=== PATIENT | male | born 1935 | race Caucasian/White ===

== ENCOUNTER → 2017-04-22 | Outpatient (CLI) | payer MEDICARE, SELFPAY ==
[~2017-04-22] MED LIST: Aspir 8181 MG PO
[2017-04-22 13:27] LABS: BASOPHILS ABSOLUTE AUTO 0.04 K/mm3 (0.00-0.23); BASOPHILS PERCENT AUTO 1 % (0-2); EOSINOPHILS ABSOLUTE AUTO 0.11 K/mm3 (0.00-0.68); EOSINOPHILS PERCENT AUTO 3 % (0-6); Hematocrit 39.6 % (37.0-53.0); Hemoglobin 12.8 g/dL (13.5-17.5); IMMATURE GRAN ABSOLUTE AUTO 0.01 K/mm3 (0.00-0.10); IMMATURE GRAN PERCENT AUTO 0 % (0-1); LYMPHOCYTES ABSOLUTE AUTO 1.44 K/mm3 (0.84-5.20); LYMPHOCYTES PERCENT AUTO 37 % (21-46); MONOCYTES ABSOLUTE AUTO 0.82 K/mm3 (0.16-1.47); MONOCYTES PERCENT AUTO 21 % (4-13); Mean Corpuscular HGB 28.3 pg (26.0-34.0); Mean Corpuscular HGB Conc 32.3 g/dL (31.5-36.5); Mean Corpuscular Volume 87 fL (80-100); Mean Platelet Volume 9.6 fL (9.1-12.4); NEUTROPHILS ABSOLUTE AUTO 1.49 K/mm3 (1.96-9.15); NEUTROPHILS PERCENT AUTO 38 % (41-73); Platelet Count 246 K/mm3 (150-400); RDW Standard Deviation 47.8 fL (35.1-46.3); Red Blood Cell Count 4.53 M/mm3 (4.30-5.90); White Blood Cell Count 3.91 K/mm3 (4.00-11.30)
[2017-04-22 13:47] LABS: Alanine Aminotransfer (ALT/SGP 23 U/L (12-78); Albumin, Blood 3.6 g/dL (3.4-5.0); Albumin/Globulin Ratio 0.8 (0.8-1.8); Alk Phos 56 U/L (40-126); Anion Gap 10 mmol/L (6-16); Aspartate Aminotrans (AST/SGOT 22 U/L (12-37); Bilirubin, Total 0.7 mg/dL (0.1-1.0); Blood Urea Nitrogen 20 mg/dL (8-24); Bun/Creatinine Ratio 17.4 (12.0-20.0); CO2, Blood 26 mmol/L (21-32); Calcium, Blood 8.9 mg/dL (8.5-10.1); Chloride, Blood 103 mmol/L (98-108); Creatinine, Blood 1.15 mg/dL (0.60-1.20); Globulin, Blood 4.4 g/dL (2.2-4.0); Glomerular Filtration Rate >60 (60-); Glucose, Blood 105 mg/dL (70-99); Potassium, Blood 3.9 mmol/L (3.5-5.5); Sodium, Blood 139 mmol/L (136-145); Thyroid Stimulating Hormone 3.758 uIU/mL (0.360-4.800)
[2017-04-22 16:18] LABS: Prostate Specific Antigen 0.021 ng/mL (0.000-4.000)
== END | disposition home or self-care (01) ==
LOC: LAB SHORT 13:22 → LAB EV 13:22
PROVIDERS: Physician Assistant
DX: R53.83 Other fatigue (principal); Z85.46 Personal history of malignant neoplasm of prostate
CPT/HCPCS: 80053; 84153; 84443; 85025

== ENCOUNTER → 2018-06-21 | Outpatient (CLI) | payer MEDICARE | END | disposition home or self-care (01) | LOC: LAB 16:13 → LAB SHORT 16:13 | DX: D51.8 Other vitamin B12 deficiency anemias (principal) | CPT/HCPCS: 82607; 82746 ==

== ENCOUNTER 2018-09-15 14:08 | Day surgery (SDC) | payer MEDICARE ==
[~2018-09-15] VITALS: Ht 182.9 cm; Wt 67.0 kg
--- NOTE | 2018-09-15 15:03 | NUR ---
09/15/18 1503 Sofy Mathews EYE BRUISING FROM PRE INJECTION BY SURGEON
== END 2018-09-15 16:21 | disposition home or self-care (01) ==
LOC: ORSCSDS 14:08
PROVIDERS: Ophthalmology
PROC: 08SQXZZ Reposition Right Lower Eyelid, External Approach (ICD-10-PCS; principal; 2018-09-15 15:30)
PROC: 8E09XY8 Suture Removal from Head and Neck Region (ICD-10-PCS; principal; 2018-09-15 15:30)
DX: H02.112 Cicatricial ectropion of right lower eyelid (principal); H02.132 Senile ectropion of right lower eyelid; H16.211 Exposure keratoconjunctivitis, right eye; E78.00 Pure hypercholesterolemia, unspecified; Z79.82 Long term (current) use of aspirin
CPT/HCPCS: J2250; J2704; J3010; J7120

== ENCOUNTER 2018-11-02 22:49 | Emergency (ER) | payer MEDICARE ==
[~2018-11-02] VITALS: Ht 182.9 cm; Wt 68.0 kg
[2018-11-02 23:10] LABS: BASOPHILS ABSOLUTE AUTO 0.03 K/mm3 (0.00-0.23); BASOPHILS PERCENT AUTO 1 % (0-2); EOSINOPHILS ABSOLUTE AUTO 0.15 K/mm3 (0.00-0.68); EOSINOPHILS PERCENT AUTO 4 % (0-6); Hematocrit 38.3 % (37.0-53.0); Hemoglobin 12.3 g/dL (13.5-17.5); IMMATURE GRAN PERCENT AUTO 0 % (0-1); LYMPHOCYTES ABSOLUTE AUTO 1.64 K/mm3 (0.84-5.20); LYMPHOCYTES PERCENT AUTO 38 % (21-46); MONOCYTES ABSOLUTE AUTO 0.87 K/mm3 (0.16-1.47); MONOCYTES PERCENT AUTO 20 % (4-13); Mean Corpuscular HGB 29.6 pg (26.0-34.0); Mean Corpuscular HGB Conc 32.1 g/dL (31.5-36.5); Mean Corpuscular Volume 92 fL (80-100); Mean Platelet Volume 9.7 fL (9.1-12.4); NEUTROPHILS ABSOLUTE AUTO 1.61 K/mm3 (1.96-9.15); NEUTROPHILS PERCENT AUTO 38 % (41-73); Platelet Count 247 K/mm3 (150-400); RDW Coefficient Variation 14.5 % (11.7-14.2); RDW Standard Deviation 49.2 fL (35.1-46.3); Red Blood Cell Count 4.15 M/mm3 (4.30-5.90)
[2018-11-02 23:28] LABS: Alanine Aminotransfer (ALT/SGP 21 U/L (12-78); Albumin, Blood 3.4 g/dL (3.4-5.0); Albumin/Globulin Ratio 0.8 (0.8-1.8); Alk Phos 59 U/L (50-136); Anion Gap 5 mmol/L (6-16); Aspartate Aminotrans (AST/SGOT 23 U/L (12-37); Bilirubin, Total 0.4 mg/dL (0.1-1.0); Blood Urea Nitrogen 31 mg/dL (8-24); Bun/Creatinine Ratio 27.7 (12.0-20.0); CO2, Blood 27 mmol/L (21-32); Calcium, Blood 8.6 mg/dL (8.5-10.1); Chloride, Blood 110 mmol/L (98-108); Creatinine, Blood 1.12 mg/dL (0.60-1.20); Globulin, Blood 4.3 g/dL (2.2-4.0); Glomerular Filtration Rate >60 (60-); Glucose, Blood 109 mg/dL (70-99); Potassium, Blood 4.2 mmol/L (3.5-5.5); Sodium, Blood 142 mmol/L (136-145); Total Protein, Blood 7.7 g/dL (6.4-8.2)
[2018-11-03 00:34] LABS: Magnesium, Blood 2.2 mg/dL (1.6-2.4)
[2018-11-03 00:36] LABS: Thyroid Stimulating Hormone 2.98 uIU/mL (0.360-4.800)
== END 2018-11-03 01:21 | disposition home or self-care (01) ==
LOC: ER 22:49
PROVIDERS: Emergency Medicine
DX: R00.2 Palpitations (principal); Z79.82 Long term (current) use of aspirin; Z85.46 Personal history of malignant neoplasm of prostate
CPT/HCPCS: 36415; 80053; 83735; 84443; 84484; 85025; 93005; 93010; 99285-25

== ENCOUNTER 2020-06-10 22:15 | Emergency (ER) | payer MEDICARE ==
[~2020-06-10] VITALS: Ht 185.4 cm; Wt 68.0 kg
[~2020-06-10 22:15] MED LIST changes: +Collagen Plus1 EACH; +ERGO400
[2020-06-10 22:54] LABS: BASOPHILS ABSOLUTE AUTO 0.02 K/mm3 (0.00-0.23); BASOPHILS PERCENT AUTO 0 % (0-2); EOSINOPHILS ABSOLUTE AUTO 0.12 K/mm3 (0.00-0.68); EOSINOPHILS PERCENT AUTO 3 % (0-6); Hematocrit 41.3 % (37.0-53.0); Hemoglobin 13.9 g/dL (13.5-17.5); IMMATURE GRAN ABSOLUTE AUTO 0.01 K/mm3 (0.00-0.10); IMMATURE GRAN PERCENT AUTO 0 % (0-1); LYMPHOCYTES ABSOLUTE AUTO 1.44 K/mm3 (0.84-5.20); LYMPHOCYTES PERCENT AUTO 32 % (21-46); MONOCYTES ABSOLUTE AUTO 0.74 K/mm3 (0.16-1.47); MONOCYTES PERCENT AUTO 17 % (4-13); Mean Corpuscular HGB 31.9 pg (26.0-34.0); Mean Corpuscular HGB Conc 33.7 g/dL (31.5-36.5); Mean Corpuscular Volume 95 fL (80-100); Mean Platelet Volume 9.7 fL (9.1-12.4); NEUTROPHILS ABSOLUTE AUTO 2.16 K/mm3 (1.96-9.15); NEUTROPHILS PERCENT AUTO 48 % (41-73); Platelet Count 269 K/mm3 (150-400); RDW Coefficient Variation 13.1 % (11.7-14.2); Red Blood Cell Count 4.36 M/mm3 (4.30-5.90); White Blood Cell Count 4.49 K/mm3 (4.00-11.30)
[2020-06-10 23:15] LABS: Alanine Aminotransfer (ALT/SGP 29 U/L (12-78); Albumin, Blood 3.7 g/dL (3.4-5.0); Albumin/Globulin Ratio 0.9 (0.8-1.8); Alk Phos 64 U/L (50-136); Anion Gap 5 mmol/L (6-16); Aspartate Aminotrans (AST/SGOT 27 U/L (12-37); Bilirubin, Total 0.7 mg/dL (0.1-1.0); Blood Urea Nitrogen 21 mg/dL (8-24); Bun/Creatinine Ratio 21.5 (12.0-20.0); CO2, Blood 27 mmol/L (21-32); Calcium, Blood 8.8 mg/dL (8.5-10.1); Chloride, Blood 107 mmol/L (98-108); Creatinine, Blood 0.98 mg/dL (0.60-1.20); Globulin, Blood 4.3 g/dL (2.2-4.0); Glomerular Filtration Rate >60 (60-); Glucose, Blood 94 mg/dL (70-99); Potassium, Blood 3.8 mmol/L (3.5-5.5); Sodium, Blood 139 mmol/L (136-145); Troponin I <0.015 ng/mL (0.000-0.040)
== END 2020-06-11 03:25 | disposition home or self-care (01) ==
LOC: ER 22:15
PROVIDERS: Emergency Medicine
DX: R00.2 Palpitations (principal); R42 Dizziness and giddiness
CPT/HCPCS: 36415; 71046; 80053; 84484; 85025; 93005; 93010; 99285-25

== ENCOUNTER → 2020-06-23 | Outpatient (CLI) | payer MEDICARE ==
[2020-06-23 11:02] LABS: BASOPHILS ABSOLUTE AUTO 0.04 K/mm3 (0.00-0.23); BASOPHILS PERCENT AUTO 1 % (0-2); EOSINOPHILS ABSOLUTE AUTO 0.08 K/mm3 (0.00-0.68); EOSINOPHILS PERCENT AUTO 3 % (0-6); Hemoglobin 13.9 g/dL (13.5-17.5); IMMATURE GRAN ABSOLUTE AUTO 0.04 K/mm3 (0.00-0.10); IMMATURE GRAN PERCENT AUTO 1 % (0-1); LYMPHOCYTES ABSOLUTE AUTO 0.87 K/mm3 (0.84-5.20); LYMPHOCYTES PERCENT AUTO 29 % (21-46); MONOCYTES PERCENT AUTO 20 % (4-13); Mean Corpuscular HGB 31.4 pg (26.0-34.0); Mean Corpuscular HGB Conc 33.1 g/dL (31.5-36.5); Mean Corpuscular Volume 95 fL (80-100); Mean Platelet Volume 9.9 fL (9.1-12.4); NEUTROPHILS ABSOLUTE AUTO 1.41 K/mm3 (1.96-9.15); NEUTROPHILS PERCENT AUTO 47 % (41-73); Platelet Count 240 K/mm3 (150-400); Red Blood Cell Count 4.42 M/mm3 (4.30-5.90); White Blood Cell Count 3.04 K/mm3 (4.00-11.30)
[2020-06-23 11:20] LABS: Alanine Aminotransfer (ALT/SGP 30 U/L (12-78); Albumin, Blood 3.5 g/dL (3.4-5.0); Albumin/Globulin Ratio 0.9 (0.8-1.8); Alk Phos 66 U/L (40-126); Anion Gap 7 mmol/L (6-16); Aspartate Aminotrans (AST/SGOT 22 U/L (12-37); Bilirubin, Total 0.7 mg/dL (0.1-1.0); Blood Urea Nitrogen 16 mg/dL (8-24); Bun/Creatinine Ratio 16.7 (12.0-20.0); CO2, Blood 29 mmol/L (21-32); Calcium, Blood 8.5 mg/dL (8.5-10.1); Chloride, Blood 102 mmol/L (98-108); Creatinine, Blood 0.96 mg/dL (0.60-1.20); Globulin, Blood 4.1 g/dL (2.2-4.0); Glomerular Filtration Rate >60 (60-); Glucose, Blood 110 mg/dL (70-99); Magnesium, Blood 2.1 mg/dL (1.6-2.4); Sodium, Blood 138 mmol/L (136-145); Thyroid Stimulating Hormone 2.011 uIU/mL (0.360-4.800); Total Protein, Blood 7.6 g/dL (6.4-8.2)
== END ==
LOC: LAB SHORT 10:55
PROVIDERS: Physician Assistant
DX: R00.2 Palpitations (principal); R53.83 Other fatigue
CPT/HCPCS: 80053; 83735; 84443; 85025

== ENCOUNTER 2020-08-08 23:54 | Emergency (ER) | payer OTHER, MEDICARE ==
[~2020-08-08] VITALS: Ht 182.9 cm; Wt 68.0 kg
[2020-08-09] MEDS ORDERED: HYDPAM25 PO (00:26)
[2020-08-09] MEDS ORDERED: QUET25 (00:26)
[2020-08-09] MEDS ORDERED: MIRTAZAPINE7.5 M1 (00:27)
[2020-08-09 00:57] LABS: BASOPHILS ABSOLUTE AUTO 0.04 K/mm3 (0.00-0.23); BASOPHILS PERCENT AUTO 1 % (0-2); EOSINOPHILS PERCENT AUTO 3 % (0-6); Hematocrit 46.2 % (37.0-53.0); Hemoglobin 15.6 g/dL (13.5-17.5); IMMATURE GRAN ABSOLUTE AUTO 0.01 K/mm3 (0.00-0.10); IMMATURE GRAN PERCENT AUTO 0 % (0-1); LYMPHOCYTES ABSOLUTE AUTO 1.62 K/mm3 (0.84-5.20); LYMPHOCYTES PERCENT AUTO 41 % (21-46); MONOCYTES ABSOLUTE AUTO 0.99 K/mm3 (0.16-1.47); MONOCYTES PERCENT AUTO 25 % (4-13); Mean Corpuscular HGB 31.6 pg (26.0-34.0); Mean Corpuscular HGB Conc 33.8 g/dL (31.5-36.5); Mean Corpuscular Volume 94 fL (80-100); Mean Platelet Volume 9.4 fL (9.1-12.4); NEUTROPHILS ABSOLUTE AUTO 1.21 K/mm3 (1.96-9.15); NEUTROPHILS PERCENT AUTO 31 % (41-73); Platelet Count 335 K/mm3 (150-400); RDW Coefficient Variation 12.5 % (11.7-14.2); RDW Standard Deviation 43.5 fL (35.1-46.3); Red Blood Cell Count 4.93 M/mm3 (4.30-5.90); White Blood Cell Count 3.97 K/mm3 (4.00-11.30)
[2020-08-09 01:12] LABS: Alanine Aminotransfer (ALT/SGP 29 U/L (12-78); Albumin/Globulin Ratio 0.9 (0.8-1.8); Alk Phos 71 U/L (50-136); Anion Gap 7 mmol/L (6-16); Aspartate Aminotrans (AST/SGOT 26 U/L (12-37); Bilirubin, Total 0.9 mg/dL (0.1-1.0); Blood Urea Nitrogen 22 mg/dL (8-24); Bun/Creatinine Ratio 19.6 (12.0-20.0); CO2, Blood 27 mmol/L (21-32); Calcium, Blood 9.4 mg/dL (8.5-10.1); Chloride, Blood 98 mmol/L (98-108); Creatinine, Blood 1.12 mg/dL (0.60-1.20); Globulin, Blood 4.4 g/dL (2.2-4.0); Glomerular Filtration Rate >60 (60-); Glucose, Blood 90 mg/dL (70-99); Potassium, Blood 3.9 mmol/L (3.5-5.5); Sodium, Blood 132 mmol/L (136-145); Total Protein, Blood 8.4 g/dL (6.4-8.2)
== END 2020-08-09 06:40 | disposition home or self-care (01) ==
LOC: ER 23:54
PROVIDERS: Student in an Organized Health Care Education/Training Program
DX: R62.7 Adult failure to thrive (principal); Z79.899 Other long term (current) drug therapy
CPT/HCPCS: 36415; 80053; 85025; 93005; 93010; 96360; 99284-25; J7030; Q3014

== ENCOUNTER 2020-09-03 11:36 | Emergency (ER) | payer OTHER, MEDICARE ==
[~2020-09-03] VITALS: Ht 182.9 cm; Wt 60.3 kg
[~2020-09-03 11:36] MED LIST changes: +HYDPAM25 PO; +MIRTAZAPINE7.5 M1; +QUET25
[2020-09-03 12:45] LABS: BASOPHILS ABSOLUTE AUTO 0.04 K/mm3 (0.00-0.23); BASOPHILS PERCENT AUTO 1 % (0-2); EOSINOPHILS PERCENT AUTO 3 % (0-6); Hemoglobin 14.4 g/dL (13.5-17.5); IMMATURE GRAN ABSOLUTE AUTO 0.01 K/mm3 (0.00-0.10); IMMATURE GRAN PERCENT AUTO 0 % (0-1); LYMPHOCYTES ABSOLUTE AUTO 1.06 K/mm3 (0.84-5.20); LYMPHOCYTES PERCENT AUTO 32 % (21-46); MONOCYTES ABSOLUTE AUTO 0.71 K/mm3 (0.16-1.47); MONOCYTES PERCENT AUTO 22 % (4-13); Mean Corpuscular HGB 31.3 pg (26.0-34.0); Mean Corpuscular HGB Conc 33.5 g/dL (31.5-36.5); Mean Corpuscular Volume 94 fL (80-100); NEUTROPHILS ABSOLUTE AUTO 1.35 K/mm3 (1.96-9.15); NEUTROPHILS PERCENT AUTO 41 % (41-73); Platelet Count 276 K/mm3 (150-400); RDW Coefficient Variation 12.5 % (11.7-14.2); RDW Standard Deviation 43.3 fL (35.1-46.3); White Blood Cell Count 3.27 K/mm3 (4.00-11.30)
[2020-09-03 13:14] LABS: Alanine Aminotransfer (ALT/SGP 35 U/L (12-78); Albumin, Blood 3.5 g/dL (3.4-5.0); Albumin/Globulin Ratio 0.7 (0.8-1.8); Alk Phos 81 U/L (50-136); Anion Gap 7 mmol/L (6-16); Aspartate Aminotrans (AST/SGOT 32 U/L (12-37); Bilirubin, Total 0.6 mg/dL (0.1-1.0); Blood Urea Nitrogen 13 mg/dL (8-24); Bun/Creatinine Ratio 15.8 (12.0-20.0); CO2, Blood 26 mmol/L (21-32); Calcium, Blood 9.1 mg/dL (8.5-10.1); Chloride, Blood 98 mmol/L (98-108); Creatinine, Blood 0.82 mg/dL (0.60-1.20); Globulin, Blood 4.7 g/dL (2.2-4.0); Glomerular Filtration Rate >60 (60-); Glucose, Blood 94 mg/dL (70-99); Potassium, Blood 4.2 mmol/L (3.5-5.5); Sodium, Blood 131 mmol/L (136-145); Total Protein, Blood 8.2 g/dL (6.4-8.2)
[2020-09-03] MEDS ORDERED: CENTRUM SILVER1 EAC2 PO (14:38)
[2020-09-03 14:47] LABS: Source, Urine Clean Catch
[2020-09-03 14:55] LABS: Appearance, Urine Clear (Clear); Bilirubin, Urine Neg (Neg); Blood, Urine Neg (Neg); Color, Urine Yellow (P-Yellow); Glucose Qualitative, Urine Neg (Neg); Ketones, Urine Neg (Neg); Leukocyte Esterase, Urine Neg (Neg); Nitrite, Urine Neg (Neg); Protein, Urine Neg (Neg); Specific Gravity, Urine 1.015 (1.003-1.022); Urobilinogen, Urine NORM (Normal)
[2020-09-03] MEDS ORDERED: Colace100 MG PO (15:50)
[2020-09-03] MEDS ORDERED: LACTULOSE20 GM/30 M PO (15:50)
== END 2020-09-03 18:59 | disposition home or self-care (01) ==
LOC: ER 11:36
PROVIDERS: Physician Assistant
DX: K59.00 Constipation, unspecified (principal); M48.54XA Collapsed vertebra, not elsewhere classified, thoracic region, initial encounter for fracture; Z79.899 Other long term (current) drug therapy
CPT/HCPCS: 36415; 74176; 80053; 81003; 83690; 85025; 96374; 99284-25; J2405; J7030

== ENCOUNTER 2020-09-13 13:04 | Emergency (ER) | payer OTHER, MEDICARE ==
[~2020-09-13] VITALS: Ht 182.9 cm; Wt 63.5 kg
[~2020-09-13 13:04] MED LIST changes: +CENTRUM SILVER1 EAC2 PO; +Colace100 MG PO; +LACTULOSE20 GM/30 M PO
[2020-09-13] MEDS ORDERED: MIRALAX17 GM PO (17:39)
== END 2020-09-13 17:50 | disposition home or self-care (01) ==
LOC: ER 13:04
DX: K59.00 Constipation, unspecified (principal); K64.4 Residual hemorrhoidal skin tags; Z79.899 Other long term (current) drug therapy
CPT/HCPCS: 36415; 74018; 99283-25

== ENCOUNTER 2020-11-27 12:17 | Inpatient (IN) | payer OTHER, MEDICARE ==
[~2020-11-27] VITALS: Ht 182.9 cm; Wt 52.2 kg
[~2020-11-27 12:17] MED LIST changes: -ERGO400; +MIRALAX17 GM PO; +Vitamin D1000 UNI1 PO
[2020-11-27 14:55] LABS: BASOPHILS ABSOLUTE AUTO 0.03 K/mm3 (0.00-0.23); BASOPHILS PERCENT AUTO 1 % (0-2); EOSINOPHILS ABSOLUTE AUTO 0.06 K/mm3 (0.00-0.68); EOSINOPHILS PERCENT AUTO 2 % (0-6); Hematocrit 33.1 % (37.0-53.0); Hemoglobin 11.6 g/dL (13.5-17.5); IMMATURE GRAN ABSOLUTE AUTO 0.03 K/mm3 (0.00-0.10); IMMATURE GRAN PERCENT AUTO 1 % (0-1); LYMPHOCYTES ABSOLUTE AUTO 0.66 K/mm3 (0.84-5.20); LYMPHOCYTES PERCENT AUTO 21 % (21-46); MONOCYTES ABSOLUTE AUTO 0.51 K/mm3 (0.16-1.47); MONOCYTES PERCENT AUTO 16 % (4-13); Mean Corpuscular HGB 33.1 pg (26.0-34.0); Mean Corpuscular Volume 95 fL (80-100); Mean Platelet Volume 8.9 fL (9.1-12.4); NEUTROPHILS ABSOLUTE AUTO 1.93 K/mm3 (1.96-9.15); NEUTROPHILS PERCENT AUTO 60 % (41-73); Platelet Count 233 K/mm3 (150-400); RDW Coefficient Variation 13.8 % (11.7-14.2); RDW Standard Deviation 47.6 fL (35.1-46.3); White Blood Cell Count 3.22 K/mm3 (4.00-11.30)
[2020-11-27] MEDS ORDERED: BISA10S PR (15:07)
[2020-11-27] MEDS ORDERED: CYAN500 PO (15:07)
[2020-11-27] MEDS ORDERED: ANASPAZ0.125 MG SL (15:08)
[2020-11-27] MEDS ORDERED: ASPI325EC PO (15:08)
[2020-11-27] MEDS ORDERED: Ativan1 MG PO (15:09)
[2020-11-27] MEDS ORDERED: MIRALAX17 GM PO (15:10)
[2020-11-27] MEDS ORDERED: MAGNESIUM OXID500 MG PO (15:10)
[2020-11-27] MEDS ORDERED: DULCOLAX400 MG/5 M PO (15:10)
[2020-11-27] MEDS ORDERED: DURAMORPH 11 MG/1 M1 (15:11)
[2020-11-27] MEDS ORDERED: TYLENOL325 MG PO (15:12)
[2020-11-27] MEDS ORDERED: Zoloft50 MG PO (15:12)
[2020-11-27] MEDS ORDERED: ZINC50 M3 PO (15:13)
[2020-11-27 15:24] LABS: Anion Gap 6 mmol/L (6-16); Blood Urea Nitrogen 18 mg/dL (8-24); Bun/Creatinine Ratio 22.3 (12.0-20.0); CO2, Blood 27 mmol/L (21-32); Calcium, Blood 8.3 mg/dL (8.5-10.1); Chloride, Blood 99 mmol/L (98-108); Creatinine, Blood 0.81 mg/dL (0.60-1.20); Glomerular Filtration Rate >60 (60-); Glucose, Blood 106 mg/dL (70-99); Potassium, Blood 4.2 mmol/L (3.5-5.5); Sodium, Blood 132 mmol/L (136-145)
--- NOTE | 2020-11-27 18:26 | NUR ---
pt on hospice had fall with fractured hip. plan is to admit and review if he can tolerate surgery. [facility] notified. Requested his medication list. pt has elevated anexiety at times per family. Family coming to see him and his vp marketing for fear he may decline quickly after this incident.
--- NOTE | 2020-11-27 20:03 | NUR ---
ADMIT NOTE HANDOFF RECEIVED FROM SCUBA INSTRUCTORREILLY WEEKS. PT ARRIVED TO FLOOR VIA GURNEY. PERSONAL POSSESSIONS WITH PT. CALL LIGHT WITHIN REACH.
--- NOTE | 2020-11-28 04:07 | NUR ---
SHIFT SUMMARY ADMITTED FROM ER THIS SHIFT. DNR CODE. HAS BEEN ON HOSPICE FOR FAILURE TO THRIVE. HE HAS LOST >30 LBS IN PAST FEW MONTHS DUE TO LACK OF APPETITE. HE FELL TODAY AT HOME AND HIS LEFT HIP IS REPORTED FRACTURED. PLAN IS FOR FAMILY AND PHYSICIANS TO WORK OUT A PLAN OF CARE TODAY. CURRENTLY HE IS ON BEDREST. HX OF DEMENTIA, FALLS, ANXIETY
[2020-11-28 05:26] LABS: BASOPHILS ABSOLUTE AUTO 0.02 K/mm3 (0.00-0.23); BASOPHILS PERCENT AUTO 1 % (0-2); EOSINOPHILS ABSOLUTE AUTO 0.04 K/mm3 (0.00-0.68); EOSINOPHILS PERCENT AUTO 1 % (0-6); Hematocrit 35.5 % (37.0-53.0); Hemoglobin 12.3 g/dL (13.5-17.5); IMMATURE GRAN ABSOLUTE AUTO 0.01 K/mm3 (0.00-0.10); IMMATURE GRAN PERCENT AUTO 0 % (0-1); LYMPHOCYTES ABSOLUTE AUTO 0.79 K/mm3 (0.84-5.20); LYMPHOCYTES PERCENT AUTO 27 % (21-46); MONOCYTES PERCENT AUTO 28 % (4-13); Mean Corpuscular HGB 32.5 pg (26.0-34.0); Mean Corpuscular HGB Conc 34.6 g/dL (31.5-36.5); Mean Corpuscular Volume 94 fL (80-100); Mean Platelet Volume 8.7 fL (9.1-12.4); NEUTROPHILS ABSOLUTE AUTO 1.23 K/mm3 (1.96-9.15); NEUTROPHILS PERCENT AUTO 43 % (41-73); Platelet Count 262 K/mm3 (150-400); RDW Coefficient Variation 13.8 % (11.7-14.2); RDW Standard Deviation 47.8 fL (35.1-46.3); Red Blood Cell Count 3.78 M/mm3 (4.30-5.90); White Blood Cell Count 2.89 K/mm3 (4.00-11.30)
[2020-11-28 05:55] LABS: Alanine Aminotransfer (ALT/SGP 54 U/L (12-78); Albumin, Blood 2.7 g/dL (3.4-5.0); Albumin/Globulin Ratio 0.7 (0.8-1.8); Alk Phos 64 U/L (50-136); Anion Gap 6 mmol/L (6-16); Aspartate Aminotrans (AST/SGOT 34 U/L (12-37); Bilirubin, Total 0.7 mg/dL (0.1-1.0); Blood Urea Nitrogen 16 mg/dL (8-24); Bun/Creatinine Ratio 21.1 (12.0-20.0); CO2, Blood 25 mmol/L (21-32); Calcium, Blood 8.6 mg/dL (8.5-10.1); Chloride, Blood 100 mmol/L (98-108); Creatinine, Blood 0.76 mg/dL (0.60-1.20); Globulin, Blood 4.1 g/dL (2.2-4.0); Glomerular Filtration Rate >60 (60-); Glucose, Blood 118 mg/dL (70-99); Potassium, Blood 4.3 mmol/L (3.5-5.5); Sodium, Blood 131 mmol/L (136-145); Total Protein, Blood 6.8 g/dL (6.4-8.2)
[2020-11-28 11:27] LABS: International Normalized Ratio 1.08; Prothrombin Time Results 11.3 Sec (9.7-11.5)
[2020-11-28 11:30] LABS: SARS-Cov-2 (COVID-19) PCR, MMC NEGATIVE (NEGATIVE)
[2020-11-28 13:25] LABS: Source, Urine Catheter
[2020-11-28 13:43] LABS: Appearance, Urine Clear (Clear); Bilirubin, Urine Neg (Neg); Blood, Urine Neg (Neg); Color, Urine Yellow (P-Yellow); Glucose Qualitative, Urine Neg (Neg); Ketones, Urine Neg (Neg); Leukocyte Esterase, Urine Neg (Neg); Nitrite, Urine Neg (Neg); Protein, Urine Neg (Neg); Specific Gravity, Urine 1.005 (1.003-1.022); Urobilinogen, Urine NORM (Normal)
--- NOTE | 2020-11-28 18:51 | NUR ---
SHIFT REPORT PT IS IN BUCKS TRACTION WITH 5LBS. FAMILY WAS IN TODAY TO DISCUSS COMFORT CARE CARE VS. HIP SURGERY. SPOKE WITH ANESTHESIOLOGY AND SURGEON AND DECIDED TO MAKE THIER CHOICE TOMORROW ON THE SURGERY. PT IS ON COMFORT CARE IN THE MEANTIME. MEDICATED FOR PAIN PER MAR, BUT TAKES SOME CONVINCING. LOUIS PLACED FOR COMFORT THIS PM. DRAINING LIGHT YELLOW URINE. WILL CONTINUE TO MONITOR
[2020-11-28] MEDS ORDERED: DOCUZEN 8.6-501 EACH PO (21:14)
[2020-11-28] MEDS ORDERED: AMIT25 PO (21:16)
[2020-11-29 04:41] LABS: BASOPHILS ABSOLUTE AUTO 0.02 K/mm3 (0.00-0.23); BASOPHILS PERCENT AUTO 1 % (0-2); EOSINOPHILS ABSOLUTE AUTO 0.03 K/mm3 (0.00-0.68); EOSINOPHILS PERCENT AUTO 1 % (0-6); Hematocrit 33.1 % (37.0-53.0); Hemoglobin 11.4 g/dL (13.5-17.5); IMMATURE GRAN ABSOLUTE AUTO 0.01 K/mm3 (0.00-0.10); IMMATURE GRAN PERCENT AUTO 0 % (0-1); LYMPHOCYTES ABSOLUTE AUTO 0.72 K/mm3 (0.84-5.20); LYMPHOCYTES PERCENT AUTO 29 % (21-46); MONOCYTES ABSOLUTE AUTO 0.76 K/mm3 (0.16-1.47); MONOCYTES PERCENT AUTO 31 % (4-13); Mean Corpuscular HGB 32.5 pg (26.0-34.0); Mean Corpuscular HGB Conc 34.4 g/dL (31.5-36.5); Mean Corpuscular Volume 94 fL (80-100); Mean Platelet Volume 8.7 fL (9.1-12.4); NEUTROPHILS ABSOLUTE AUTO 0.95 K/mm3 (1.96-9.15); NEUTROPHILS PERCENT AUTO 38 % (41-73); Platelet Count 257 K/mm3 (150-400); RDW Coefficient Variation 13.9 % (11.7-14.2); RDW Standard Deviation 48.3 fL (35.1-46.3); Red Blood Cell Count 3.51 M/mm3 (4.30-5.90); White Blood Cell Count 2.49 K/mm3 (4.00-11.30)
[2020-11-29 05:09] LABS: Anion Gap 6 mmol/L (6-16); Blood Urea Nitrogen 19 mg/dL (8-24); Bun/Creatinine Ratio 22.6 (12.0-20.0); CO2, Blood 26 mmol/L (21-32); Calcium, Blood 8.8 mg/dL (8.5-10.1); Chloride, Blood 100 mmol/L (98-108); Creatinine, Blood 0.84 mg/dL (0.60-1.20); Glomerular Filtration Rate >60 (60-); Glucose, Blood 122 mg/dL (70-99); Magnesium, Blood 2.5 mg/dL (1.6-2.4); Potassium, Blood 4.2 mmol/L (3.5-5.5); Sodium, Blood 132 mmol/L (136-145)
--- NOTE | 2020-11-29 06:28 | NUR ---
SHIFT SUMMARY NO ACUTE CHANGES, PT AWAKE MOST OF THE NIGHT, MOSTLY DECLINES PAIN MEDS ALTHOUGH PT APPEARS PAINFUL, NPO SINCE MIDNIGHT, REQ BUCKS TRACTION OFF @ 0540, BEDRESTING AT THIS TIME, CALL LIGHT IN REACH, WILL CONT TO MONITOR UNTIL REPORT GIVEN TO DAY RN.
--- NOTE | 2020-11-29 09:01 | NUR ---
History, Chart, Medications and Allergies reviewed before start of procedure. Lungs clear T/O to Auscultation. Patient confirms NPO status and agrees with scheduled surgery. Pre-Op teaching done. Pt verbalizes understanding. Henson to gravity with clementina colored urine.
--- NOTE | 2020-11-29 10:00 | NUR ---
PT IN DAY SURG AT 1000
--- NOTE | 2020-11-29 12:06 | NUR ---
PT TO DAY SURG THIS AM REPORT FROM DAY SURG. 1100. RETURNED TO ROOM SHORTLY AFTER. PT MAKES EYE CONTACT. SOME Y/N ANS. PINNED LEFT HIP FX. 3 DRESSINGS ATTACHED. NO BLEEDING THRU NOTICED. BED IN LOW POSITION, CALL LITE IN REACH, BED ALARM ON FOR SAFETY
--- NOTE | 2020-11-29 16:10 | NUR ---
PT BACK FROM SURG. FAMILY IN AND STATES HE ANX. IS CONCERNED JAW DISPLACED. HAS BEEN TAKING SMALL BITES OF PUREE FOOD AND SIPS WATER W/O TROUBLE. FAMILY STATES ALSO PT STATES IS SOB. DID CHECK VITALS. OKAY AT 97-98% ON R/A WITH RESP EASY, UNLABORED. SPOKE TO DAUGHTER, SACHI, SHE IS MOSTLY IN CHARGE. STATES HE REGULARLY FIXATES ON JAW FOR LAST FEW MONTHS. THIS IS A FIXATION NOT A PHYSICAL ISSUE. ALSO DISCUSSED HIS REPOET OF SOB. THIS IS ALSO A NORMAL FIXATION FOR HIM. NO NEW CONCERNS NOTED. ADMIN HIS ATIVAN. DAUGHTER STATES HE SUNDOWNING FORLAS FEW MONTHS. DISCUSSED MEDS WITH ADJUSTMENTS MADE.
--- NOTE | 2020-11-29 16:23 | NUR ---
DR JEFFERSONTRATE ORDER 750 ML NS @125 FOR LOW B/P OKAYED ZOLOFT TO 50 MG 9AM 100MG AT 2PM, 50MG AT 7 PM
--- NOTE | 2020-11-29 18:20 | NUR ---
PT MOSTLY PLEASANT TODAY. DID COME BACK FROM SURG ON L HIP TODAY. PINS PLACED PER FARE REGISTER REPAIRER. 3 SMALL BANDAGES. NO BLEEDING NOTED. PT FAMILY REFUSING PHYSICAL THERAPY PER COMFORT CARE. THEY ARE DEFERRING TO DAUGHTER MAXIM, I SPOKE TO MAXIM, SHE DAUGHTER IS AGREEABLE TO TRY TO GET HIM TO STAND PIVOT TO CHAIR BEST MIGHT GET TO DO. UNABLE TO PERFORM. HAS SOME HELP TO ASSIST. MEDS DISCUSSED WITH DAUGHTER. ADJUSTMENTS MADE PER DR JOHNSON. NO OTHER CONERNS NOTED. BED IN LOW POSITION, CALLLITE IN REACH, BED ALARM ON FOR SAFETY.
--- NOTE | 2020-11-29 18:49 | NUR ---
CALLED DR JOHNSON. LOW BP. OKAY TURN UP FLUID TO 175 FOR 500 ML INSTEAD OF THE 125 RATE. DONE.
--- NOTE | 2020-11-30 05:18 | NUR ---
END OF SHIFT SUMMARY: Pt pleasantly confused. Oriented to person. Has 3 bandages on surgical sites on the L leg. Pedal pulses present in both extremities. Pt reports being able to fell my touch in bilateral feet and able to wiggle toes on both feet. He complained f pain at beggining of shift, medicated per eMAR. Fluids d/c'd per order and stable vital signs. Call light within reach. Bed in lowest position. Bed alarm in place.
--- NOTE | 2020-11-30 13:03 | NUR ---
PT PULLED IV (INTACT). GIVES NO REASON. CLEANED AND APPLIED DRESSING.
--- NOTE | 2020-11-30 16:09 | NUR ---
therputic visit with family for decision making they are exhaused and tryin to figure out a plan.
[2020-11-30] MEDS ORDERED: Norco 5-325 Ta1 EACH PO (17:37)
--- NOTE | 2020-11-30 18:21 | NUR ---
PT HAS HAD LARGE BM TODAY. IS ON COMFORT CARE/ HOSPICE. PENDING D/C MOMENTARILY. GOING HOME HOSPICE. PT PULLED IV TODAY. NO TELE. WAS PULLING LOUIS, SO SPOKE TO DR AND WE D/C'D. FAMILY AT BEDSIDE. BED IN LOW POSITOIN, CALL LITE IN REACH, BED ALARM ON FOR SAFEFY
--- NOTE | 2020-11-30 23:27 | NUR ---
Ambulance picked up pt at this time. Pt enroute to home with family. Pt resting, no signs of pain or distress.
== END 2020-11-30 23:23 | disposition hospice, home (50) | DRG 480 ==
LOC: ER 12:17 → MEDS 12:18
PROVIDERS: Emergency Medicine; Family Medicine; Orthopaedic Surgery; ADMIT Hospitalist
PROC: 0QS736Z Reposition Left Upper Femur with Intramedullary Internal Fixation Device, Percutaneous Approach (ICD-10-PCS; principal; 2020-11-29 09:00)
DX: S72.142A Displaced intertrochanteric fracture of left femur, initial encounter for closed fracture (principal); E43 Unspecified severe protein-calorie malnutrition; Z68.1 Body mass index [BMI] 19.9 or less, adult; Z20.822 Contact with and (suspected) exposure to COVID-19; Z66 Do not resuscitate; Z51.5 Encounter for palliative care; R62.7 Adult failure to thrive; K59.00 Constipation, unspecified; F03.90 Unspecified dementia, unspecified severity, without behavioral disturbance, psychotic disturbance, mood disturbance, and anxiety; K58.9 Irritable bowel syndrome, unspecified; F41.9 Anxiety disorder, unspecified; Z79.899 Other long term (current) drug therapy; Z85.46 Personal history of malignant neoplasm of prostate; Z98.890 Other specified postprocedural states; Z79.82 Long term (current) use of aspirin; W18.30XA Fall on same level, unspecified, initial encounter
CPT/HCPCS: 36415; 73501; 73502; 80048; 80053; 81003; 83735; 85025; 85610; 85730; 93306; 96374-59; 96375; 96375-59; 96376; 96376-59; 97162; 97167; 97530; 99284-25; A9270; C1713; G0378; J0171; J0690; J1100; J1644; J2270; J2370; J2405; J2704; J3010; J7030; J7120; Q0177; U0004